=== PATIENT | male | born 1965 | race Caucasian/White ===

== ENCOUNTER 2018-08-19 17:38 | Inpatient (IN) | payer OTHER ==
[2018-08-19 17:56] LABS: ADD MAN DIFF? NO
[2018-08-19 18:02] LABS: WHITE BLOOD COUNT 8.5 10^3/ul (4.8-10.8)
[2018-08-19 18:02] LABS: BASOPHIL # 0.1 10^3/ul (0.0-0.1); BASOPHILS % 0.7 % (0.0-2.0); EOSINOPHILS # 0.1 10^3/ul (0.0-0.5); EOSINOPHILS % 1.7 % (0.0-7.0); HEMATOCRIT 35.1 % (42.0-52.0); HEMOGLOBIN 11.5 g/dl (14.0-18.0); LYMPHOCYTES # 1.5 10^3/ul (0.8-2.9); LYMPHOCYTES % 17.1 % (15.0-51.0); MEAN CORPUSCULAR HEMOGLOBIN 29.8 pg (29.0-33.0); MEAN CORPUSCULAR HGB CONC 32.8 g/dl (32.0-37.0); MEAN CORPUSCULAR VOLUME 90.9 fl (82.0-101.0); MONOCYTES % 11.3 % (0.0-11.0); NEUTROPHIL # 5.8 10^3/ul (1.6-7.5); NEUTROPHILS % 68.8 % (39.0-77.0); PLATELET COUNT 403 10^3/UL (140-415); RED BLOOD COUNT 3.86 10^6/ul (4.70-6.10); RED CELL DISTRIBUTION WIDTH 12.7 % (11.5-14.5)
[2018-08-19] MEDS: IPRATROPIUM (NEB) 0.5 MG/2.5 ML AMP INH (18:13)
[2018-08-19] MEDS: ALBUTEROL 0.5% (NEB) 2.5 MG/0.5 ML AMP INH (18:13)
[2018-08-19 18:22] LABS: MODE ROOM AIR; MetHgb Venous 0.3 %; Sample Type Blood venous; Site VENOUS LINE; Venous COHb 0.5 %; Venous Fraction OxyHgb 65.5 %; Venous Total Hemglobin 12.5 g/dl
[2018-08-19 18:29] LABS: ALANINE AMINOTRANSFERASE 24 IU/L (13-69); ALBUMIN 3.7 g/dl (3.3-4.9); ALBUMIN/GLOBULIN RATIO 0.84; ALKALINE PHOSPHATASE 55 IU/L (42-121); ANION GAP 6 (5-13); ASPARTATE AMINO TRANSFERASE 33 IU/L (15-46); BILIRUBIN,INDIRECT 0.5 mg/dl (0-1.1); BILIRUBIN,TOTAL 0.5 mg/dl (0.2-1.3); BLOOD UREA NITROGEN 10 mg/dl (7-20); CALCIUM 8.6 mg/dl (8.4-10.2); CARBON DIOXIDE 30 mmol/L (21-31); CHLORIDE 106 mmol/L (97-110); CREATININE 0.71 mg/dl (0.61-1.24); Estimated GFR > 60 mL/min (>60); GLUCOSE 143 mg/dl (70-220); POTASSIUM 4.6 mmol/L (3.5-5.1); SODIUM 142 mmol/L (135-144); TOTAL PROTEIN 8.1 g/dl (6.1-8.1)
[2018-08-19] MEDS: ACETAMINOPHEN 325 MG TAB PO (18:30)
[2018-08-19] MEDS: METHYLPREDNISOLONE 125 MG INJ IV (18:30)
[2018-08-19] MEDS: SODIUM CHLORIDE 0.9% 1L BAG IV* (18:31)
[2018-08-19] MEDS: CEFTRIAXONE 1 GM/50 ML (PMX) 50 ML IVPB (18:31)
[2018-08-19 18:40] LABS: TROPONIN-I < 0.012 ng/ml (0.000-0.120)
[2018-08-19] MEDS: AZITHROMYCIN 500MG/NS (PMX) 250 ML IV (19:16)
[2018-08-19] MEDS ORDERED: ONDANSETRON 4 MG INJ IV ×2 (20:00→21:30)
[2018-08-19] MEDS ORDERED: ACETAMINOPHEN 325 MG TAB PO ×2 (20:00→21:30)
[2018-08-19 20:19] LABS: B-TYPE NATRIURETIC PEPTIDE 339 PG/ML (0-125)
[2018-08-19] MEDS: IOHEXOL 300MG/ML 150 ML BTL (20:31)
[2018-08-19] MEDS: SOD CHLORIDE 0.9% 100 ML (20:31)
[2018-08-19] MEDS ORDERED: NACL 0.9% 3 ML SYG IV (21:30)
[2018-08-19] MEDS: IBUPROFEN 600 MG TAB PO (21:39)
[2018-08-19 22:37] LABS: CREATINE KINASE 82 IU/L (23-200)
[2018-08-19 22:50] LABS: CK INDEX 0.3; CK-MB < 0.22 ng/ml (0.0-2.4); TROPONIN-I < 0.012 ng/ml (0.000-0.120)
[2018-08-19 22:54] LABS: LACTIC ACID 2.8 mmol/L (0.5-2.0)
[2018-08-20 00:05] LABS: LACTIC ACID 2.3 mmol/L (0.5-2.0)
[2018-08-20 06:08] LABS: WHITE BLOOD COUNT 8.2 10^3/ul (4.8-10.8)
[2018-08-20 06:08] LABS: ADD MAN DIFF? NO; BASOPHILS % 0.1 % (0.0-2.0); HEMOGLOBIN 12.2 g/dl (14.0-18.0); LYMPHOCYTES # 0.7 10^3/ul (0.8-2.9); LYMPHOCYTES % 8.7 % (15.0-51.0); MEAN CORPUSCULAR HEMOGLOBIN 30.3 pg (29.0-33.0); MEAN CORPUSCULAR HGB CONC 33.9 g/dl (32.0-37.0); MEAN CORPUSCULAR VOLUME 89.6 fl (82.0-101.0); MEAN PLATELET VOLUME 8.8 fl (7.4-10.4); MONOCYTE # 0.3 10^3/ul (0.3-0.9); NEUTROPHIL # 7.2 10^3/ul (1.6-7.5); PLATELET COUNT 427 10^3/UL (140-415); RED BLOOD COUNT 4.02 10^6/ul (4.70-6.10); RED CELL DISTRIBUTION WIDTH 12.6 % (11.5-14.5)
[2018-08-20 06:31] LABS: CREATINE KINASE 70 IU/L (23-200)
[2018-08-20 06:44] LABS: CK INDEX 0.6; CK-MB 0.42 ng/ml (0.0-2.4); TROPONIN-I < 0.012 ng/ml (0.000-0.120)
[2018-08-20 06:48] LABS: ALANINE AMINOTRANSFERASE 26 IU/L (13-69); ALBUMIN 3.6 g/dl (3.3-4.9); ALBUMIN/GLOBULIN RATIO 0.92; ALKALINE PHOSPHATASE 55 IU/L (42-121); ANION GAP 6 (5-13); ASPARTATE AMINO TRANSFERASE 31 IU/L (15-46); BILIRUBIN,INDIRECT 0.5 mg/dl (0-1.1); BILIRUBIN,TOTAL 0.5 mg/dl (0.2-1.3); BLOOD UREA NITROGEN 7 mg/dl (7-20); CARBON DIOXIDE 29 mmol/L (21-31); CHLORIDE 109 mmol/L (97-110); CHOL/HDL RATIO 3.5 RATIO; CHOLESTEROL 136 mg/dl (100-200); Estimated GFR > 60 mL/min (>60); GLUCOSE 180 mg/dl (70-220); HDL CHOLESTEROL 38 mg/dl (28-71); LDL CHOLESTEROL,CALCULATED 89 mg/dl; MAGNESIUM 2.4 mg/dl (1.7-2.5); POTASSIUM 4.4 mmol/L (3.5-5.1); SODIUM 144 mmol/L (135-144); TOTAL PROTEIN 7.5 g/dl (6.1-8.1); TRIGLYCERIDES 45 mg/dl (0-149)
[2018-08-20 07:04] LABS: THYROID STIMULATING HORMONE 0.072 MIU/L (0.465-4.680)
[2018-08-20] MEDS: LEVOFLOXACIN 500MG/D5W (PMX) 100 ML IVPB (07:07)
[2018-08-20 09:35] LABS: HEMOGLOBIN A1C 5.6 % (0-5.9)
[2018-08-21] MEDS: LEVOFLOXACIN 500MG/D5W (PMX) 100 ML IVPB (06:00)
[2018-08-21 12:13] LABS: PLATELET COUNT 483 10^3/UL (140-415)
[2018-08-21 12:42] LABS: PT RATIO 1.1
[2018-08-21 12:43] LABS: LACTIC ACID 1.5 mmol/L (0.5-2.0)
[2018-08-21 12:47] LABS: THROMBIN TIME 17.8 SEC (13.8-19.1)
[2018-08-21 13:01] LABS: INR 1.04; PROTIME 13.7 Sec (11.9-14.9)
[2018-08-21 13:06] LABS: PROCALCITONIN 0.05 ng/mL (0.00-0.10)
[2018-08-21] MEDS ORDERED: morphine 4 MG/ML VIAL IV (16:00)
[2018-08-21] MEDS: morphine 2 MG INJ IV ×2 (16:47→20:20)
[2018-08-21] MEDS ORDERED: morphine 2 MG INJ IV (19:00)
[2018-08-22] MEDS ORDERED: IPRATROPIUM (NEB) 0.5 MG/2.5 ML AMP HHN (02:00)
[2018-08-22] MEDS: LEVALBUTEROL (NEB) 0.63 MG/3 ML AMP HHN ×6 (02:17→20:13)
[2018-08-22] MEDS: IPRATROPIUM (NEB) 0.5 MG/2.5 ML AMP HHN ×6 (02:17→20:13)
[2018-08-22 02:30] LABS: AADO2 Arterial 153.6 mmHg (7.0-24.0); Allen Test ACCEPTAB; Arterial Base Excess 4.3 mmol/L (-3.0-3); Arterial Blood Gas Oxygen Sat 91.1 mmHG (95.0-98.0); Arterial COHb 0.3 % (0.0-3.0); Arterial Fraction of Oxyhgb 90.6 % (93.0-99.0); Arterial HCO3 27.8 mmol/L (22.0-26.0); Arterial MetHb 0.2 % (0.0-1.5); Arterial pCO2 37.8 mmhg (35-45); MODE NASAL CANNULA; Site Right Radial
[2018-08-22] MEDS: LEVOFLOXACIN 500MG/D5W (PMX) 100 ML IVPB (06:00)
[2018-08-22 09:17] LABS: LACTATE DEHYDROGENASE 741 IU/L (313-618)
[2018-08-22 09:45] LABS: HEPATITIS B SURFACE ANTIGEN NEGATIVE (NEGATIVE)
[2018-08-22 10:02] LABS: HEPATITIS C VIRAL ANTIBODY NEGATIVE (NEGATIVE); HIV 1&2 ANTIBODY NEGATIVE (NEGATIVE)
[2018-08-22 10:03] LABS: HEPATITIS B SURFACE ANTIBODY NEGATIVE (NEGATIVE)
[2018-08-22] MEDS ORDERED: IBUPROFEN 600 MG TAB PO (13:30)
[2018-08-22 19:33] LABS: RHEUMATOID FACTOR POSITIVE (NEGATIVE)
[2018-08-22 19:36] LABS: RAPID PLASMA REAGIN NONREACTIVE (NR)
[2018-08-23] MEDS: LEVALBUTEROL (NEB) 0.63 MG/3 ML AMP HHN ×5 (00:07→20:12)
[2018-08-23] MEDS: IPRATROPIUM (NEB) 0.5 MG/2.5 ML AMP HHN ×5 (00:07→20:13)
[2018-08-23] MEDS: LEVOFLOXACIN 500MG/D5W (PMX) 100 ML IVPB (06:14)
[2018-08-23 12:07] LABS: CYTOMEGALOVIRUS ANTIBODY (IGM) <30.00 AU/mL
[2018-08-23 12:56] LABS: ANA SCREEN NEGATIVE (NEGATIVE)
[2018-08-23] MEDS: ACETYLCYSTEINE 20% 4 ML VIAL NEB ×2 (12:58→20:14)
[2018-08-23] MEDS: ALBUTEROL/IPRATROPIUM (NEB) 3 ML AMP HHN ×2 (13:13→20:13)
[2018-08-23 19:11] LABS: EBV NUCLEAR AG (EBNA) AB (IGG) >600.00 U/mL; EBV VIRAL CAPSID AG AB (IGM) <36.00 U/mL
[2018-08-24] MEDS: LEVALBUTEROL (NEB) 0.63 MG/3 ML AMP HHN (01:38)
[2018-08-24] MEDS: ACETYLCYSTEINE 20% 4 ML VIAL NEB ×4 (01:38→20:01)
[2018-08-24 03:47] LABS: CMV DNA QL SOURCE WHOLE BLOOD
[2018-08-24 05:38] LABS: ADD MAN DIFF? NO
[2018-08-24 05:41] LABS: WHITE BLOOD COUNT 8.2 10^3/ul (4.8-10.8)
[2018-08-24 05:41] LABS: BASOPHIL # 0.1 10^3/ul (0.0-0.1); BASOPHILS % 0.7 % (0.0-2.0); EOSINOPHILS # 0.4 10^3/ul (0.0-0.5); EOSINOPHILS % 4.6 % (0.0-7.0); HEMATOCRIT 34.8 % (42.0-52.0); HEMOGLOBIN 11.2 g/dl (14.0-18.0); LYMPHOCYTES # 2.3 10^3/ul (0.8-2.9); LYMPHOCYTES % 28.4 % (15.0-51.0); MEAN CORPUSCULAR HEMOGLOBIN 29.2 pg (29.0-33.0); MEAN CORPUSCULAR HGB CONC 32.2 g/dl (32.0-37.0); MEAN CORPUSCULAR VOLUME 90.9 fl (82.0-101.0); MEAN PLATELET VOLUME 9.1 fl (7.4-10.4); MONOCYTE # 0.7 10^3/ul (0.3-0.9); NEUTROPHIL # 4.7 10^3/ul (1.6-7.5); NEUTROPHILS % 57.2 % (39.0-77.0); PLATELET COUNT 412 10^3/UL (140-415); RED BLOOD COUNT 3.83 10^6/ul (4.70-6.10); RED CELL DISTRIBUTION WIDTH 13.1 % (11.5-14.5)
[2018-08-24] MEDS: LEVOFLOXACIN 500 MG TAB PO (05:54)
[2018-08-24 06:09] LABS: ALANINE AMINOTRANSFERASE 26 IU/L (13-69); ALBUMIN 3.1 g/dl (3.3-4.9); ALBUMIN/GLOBULIN RATIO 0.79; ALKALINE PHOSPHATASE 38 IU/L (42-121); ANION GAP 5 (5-13); ASPARTATE AMINO TRANSFERASE 26 IU/L (15-46); BILIRUBIN,INDIRECT 0.3 mg/dl (0-1.1); BILIRUBIN,TOTAL 0.3 mg/dl (0.2-1.3); BLOOD UREA NITROGEN 11 mg/dl (7-20); CALCIUM 8.3 mg/dl (8.4-10.2); CARBON DIOXIDE 30 mmol/L (21-31); CHLORIDE 108 mmol/L (97-110); CREATININE 0.68 mg/dl (0.61-1.24); Estimated GFR > 60 mL/min (>60); GLUCOSE 118 mg/dl (70-220); POTASSIUM 4.3 mmol/L (3.5-5.1); SODIUM 143 mmol/L (135-144)
[2018-08-24] MEDS: ALBUTEROL/IPRATROPIUM (NEB) 3 ML AMP HHN ×3 (08:45→20:01)
[2018-08-24 11:47] LABS: NIL 0.02 IU/mL; QUANTIFERON(R)-TB GOLD NEGATIVE (NEGATIVE); TB-NIL 0.07 IU/mL; TB2-NIL 0.14 IU/mL
[2018-08-24 17:21] LABS: MYCOPLASMA PNEUMONIAE AB (IGG) 1.47
[2018-08-24] MEDS: IBUPROFEN 600 MG TAB PO (21:13)
[2018-08-25] MEDS: ACETYLCYSTEINE 20% 4 ML VIAL NEB ×3 (01:36→13:57)
[2018-08-25] MEDS: LEVALBUTEROL (NEB) 0.63 MG/3 ML AMP HHN (01:36)
[2018-08-25] MEDS: IBUPROFEN 600 MG TAB PO ×2 (05:55→14:00)
[2018-08-25] MEDS: LEVOFLOXACIN 500 MG TAB PO (05:55)
[2018-08-25] MEDS: ALBUTEROL/IPRATROPIUM (NEB) 3 ML AMP HHN ×2 (08:37→13:56)
== END 2018-08-25 15:07 | disposition home or self-care (01) | DRG 315 ==
LOC: E/R 17:38 → 6WM 21:24
PROC: 4A033R1 Measurement of Arterial Saturation, Peripheral, Percutaneous Approach (ICD-10-PCS; principal; 2018-08-19)
DX: I31.9 Disease of pericardium, unspecified (principal); J47.0 Bronchiectasis with acute lower respiratory infection; J90 Pleural effusion, not elsewhere classified; I31.3 Pericardial effusion (noninflammatory); J20.9 Acute bronchitis, unspecified; I10 Essential (primary) hypertension; Z72.0 Tobacco use; R59.0 Localized enlarged lymph nodes; R94.6 Abnormal results of thyroid function studies
CPT/HCPCS: 36415; 36600; 71045; 71260; 76604; 80053; 80061; 82164; 82550; 82553; 82803; 83036; 83605; 83615; 83735; 83880; 84145; 84443; 84484; 85025; 85049; 85610; 85651; 85670; 85730; 86038; 86430; 86480; 86592; 86617; 86635; 86644; 86658; 86664; 86703; 86706; 86738; 86777; 86803; 87040-91; 87340; 87400; 87496; 93005; 93306; 94640; 94644; 94664; 96365; 96375; 99285-25

== ENCOUNTER 2018-09-08 11:52 | Day surgery (SDC) | payer OTHER ==
[2018-09-08] MEDS ORDERED: FENTAnyl 50 MCG/ML VIAL (14:33)
[2018-09-08] MEDS ORDERED: MIDAZOLAM 1 MG/ML 2 ML INJ ×2 (14:33)
== END 2018-09-08 16:11 | disposition home or self-care (01) ==
LOC: GIL 11:52
DX: Z12.11 Encounter for screening for malignant neoplasm of colon (principal); D12.5 Benign neoplasm of sigmoid colon; K64.8 Other hemorrhoids
CPT/HCPCS: 45385; 88305